=== PATIENT | male | born 1985 | race Caucasian/White ===

== ENCOUNTER 2017-08-22 21:03 | Emergency (ER) | payer BC ==
[~2017-08-22] VITALS: Ht 190.5 cm; Wt 100.2 kg
[2017-08-22 22:24] VITALS: BP 152/86
== END 2017-08-22 22:22 | disposition home or self-care (01) ==
LOC: FSED 21:03
DX: S00.83XA Contusion of other part of head, initial encounter (principal); Y04.0XXA Assault by unarmed brawl or fight, initial encounter; Y92.511 Restaurant or cafe as the place of occurrence of the external cause
CPT/HCPCS: 70450; 99283